=== PATIENT | male | born 1980 | race Hispanic/Latino ===

== ENCOUNTER 2017-07-13 13:27 | Emergency (ER) | payer SELFPAY ==
[2017-07-13 15:08] LABS: Urine Bacteria <20 /HPF (NONE SEEN); Urine Culture Reflex Order REFLEXED; Urine Mucus 2+ /HPF (NONE SEEN)
[2017-07-13 15:09] LABS: Urine Blood 3+ (NEG); Urine Glucose 2+ (NEG); Urine Protein 2+ (NEG); Urine Specific Gravity 1.025 (1.005-1.030); Urine pH 5.5 (5.0-7.0)
[2017-07-13] MEDS ORDERED: CEFTRIAXONE/SWI 1gm 1 GM/10 ML SYR ONE (15:31)
[2017-07-13] MEDS ORDERED: AZITHROMYCIN 250 MG TAB ONE (15:35)
--- NOTE | 2017-07-13 16:34 | EDPHYS ---
Physician Documentation [facility] Name: Boo Nieto Age: 37 yrs Sex: Male : 1980 Arrival Date: 07/13/2017 Time: 13:30 Bed 23 Private MD: ED Physician Glenn Noel HPI: 07/13 15:00 This 37 yrs old Male presents to ER via Ambulatory with complaints of Genital cp Problem. 15:00 The patient presents with urinary symptoms, pain, difficulty urinating. cp 15:00 Onset: The symptoms/episode began/occurred 4 day(s) ago. cp 15:00 Associated signs and symptoms: Pertinent positives: penile swelling, Pertinent cp negatives: abdominal pain, fever. Severity of symptoms: in the emergency department the symptoms are unchanged, despite home interventions. Historical: - Allergies: 13:37 No Known Allergies; aj - Home Meds: 13:37 None [Active]; aj - PMHx: 13:37 None; aj - PSHx: 13:37 None; aj - Immunization history:: Adult Immunizations up to date. - Social history:: Smoking status: Patient/guardian denies using tobacco. ROS: 15:05 Constitutional: Negative for body aches, chills, fever, poor PO intake. cp 15:05 Eyes: Negative for injury, pain, redness, and discharge. cp 15:05 ENT: Negative for drainage from ear(s), ear pain, sore throat, difficulty swallowing, difficulty handling secretions. 15:05 Cardiovascular: Negative for chest pain, edema, palpitations. 15:05 Respiratory: Negative for cough, shortness of breath, wheezing. 15:05 Abdomen/GI: Negative for abdominal pain, nausea, vomiting, and diarrhea, black/tarry stool, rectal bleeding. 15:05 : Positive for difficulty urinating, penile pain. 15:05 All other systems are negative. Exam: 15:12 Constitutional: The patient appears in no acute distress, alert, awake, non-toxic, well cp developed, well nourished, uncomfortable. 15:12 Head/Face: Normocephalic, atraumatic. cp 15:12 Eyes: Periorbital structures: appear normal, Conjunctiva: normal, no exudate, no cp injection, Lids and lashes: appear normal, bilaterally. 15:12 ENT: External ear(s): are unremarkable, Nose: is normal, Mouth: is normal. 15:12 Chest/axilla: Inspection: normal, Palpation: is normal, no crepitus, no tenderness. 15:12 Cardiovascular: Rate: normal, Rhythm: regular. 15:12 Respiratory: the patient does not display signs of respiratory distress, Respirations: normal, no use of accessory muscles, no retractions, no splinting, no tachypnea, labored breathing, is not present, Breath sounds: are clear throughout, no decreased breath sounds, no stridor, no wheezing. 15:12 Abdomen/GI: Inspection: abdomen appears normal, Bowel sounds: active, all quadrants, Palpation: abdomen is soft and non-tender, in all quadrants, voluntary guarding, is not appreciated, involuntary guarding, is not appreciated. 15:12 : Male external genitalia: Patient is not circumisioned. erythema, of the head of penis is seen, swelling: of the head of penis is noted, foreskin swollen and unable to fully retract, Sexual behavior: the patient is sexually active, and reports a single partner. Vital Signs: 13:37 BP 112 / 76; Pulse 76; Resp 20; Temp 97.6; Pulse Ox 98% on R/A; Weight 81.65 kg; Height aj 5 ft. 6 in. (167.64 cm); Pain 10/10; 14:30 BP 124 / 93; Pulse 71; Resp 18; Pulse Ox 99% on R/A; Pain 9/10; em 16:44 BP 127 / 86; Pulse 84; Resp 14; Pulse Ox 97% on R/A; Pain 7/10; em 13:37 Body Mass Index 29.05 (81.65 kg, 167.64 cm) aj MDM: 14:07 Patient medically screened. cp 15:00 Differential diagnosis: UTI, Wood catheter problem, prostatitis, urethritis, phimosis. cp 16:32 Data reviewed: vital signs, nurses notes, lab test result(s), and as a result, I will cp discharge patient. 16:32 Counseling: I had a detailed discussion with the patient and/or guardian regarding: the cp historical points, exam findings, and any diagnostic results supporting the discharge/admit diagnosis, lab results, the need for outpatient follow up, a urologist. 16:32 ED course: VSS. Patient able to void and empty bladder. Will discharge to home for cp continued monitoring. 07/13 14:31 Order name: Urine Microscopic Only; Complete Time: 15:09 07/13 15:09 Interpretation: UWBC >50; URBC 5-10; SQEPI 5-10; Reviewed. 07/13 14:44 Order name: Urine Dipstick--Ancillary (enter results); Complete Time: 15:15 mw2 07/13 15:15 Interpretation: UKET 1+; UBLD 3+; UPROT 2+; Reviewed. 07/13 15:10 Order name: Urine Culture [facility] 07/13 14:31 Order name: Urine Dipstick-Ancillary (obtain specimen); Complete Time: 14:50 07/13 14:31 Order name: Bladder Scanner: pre and post void; Complete Time: 15:03 07/13 15:16 Order name: IV; Complete Time: 16:18 cp Administered Medications: 15:15 Not Given (Physician Discretion): Rocephin (cefTRIAXone) 1 grams IM once cp 16:18 Drug: Zithromax 1 grams Route: PO; em 17:04 Follow up: Response: No adverse reaction em 16:20 Drug: Rocephin - (cefTRIAXone) 1 grams Route: IVPB; Infused Over: 30 mins; Site: right ss antecubital; 17:03 Follow up: Response: No adverse reaction; IV Status: Completed infusion em Disposition: 07/13/17 16:33 Discharged to Home. Impression: Phimosis. - Condition is Stable. - Discharge Instructions: Phimosis. - Prescriptions for Clotrimazole 1 % Topical Cream - Apply to affected area 1 application by TOPICAL route 3 times per day apply to head of penis as directed; 30 gram. Keflex 500 mg Oral Capsule - take 1 capsule by ORAL route every 6 hours for 10 days; 40 capsule. - Medication Reconciliation Form, Thank You Letter, Antibiotic Education, Prescription Opioid Use form. - Follow up: Brandy Balderrama MD; When: 2 - 3 days; Reason: Recheck today's complaints. - Problem is new. - Symptoms have improved. Addendum: 07/17/2017 12:47 Co-signature as Attending Physician, Glenn Noel MD. g s Signatures: Dispatcher [employer] Priyanka Tavares RN RN Schuyler Mcmanus, BREWING TECHNICIAN BREWING TECHNICIAN Leigha Au RN RN ss Page, Corey, PA PA cp Starr, Gregory, MD MD gs Corrections: (The following items were deleted from the chart) 07/13 16:22 15:16 CBC+H.LAB.BRZ ordered. EDMS EDMS 16: 15:16 BASIC METABOLIC PANEL+C.LAB.BRZ ordered. EDMS EDMS 16: 15:16 HEPATIC FUNCTION+C.LAB.BRZ ordered. EDMS EDMS
--- NOTE | 2017-07-13 16:34 | ER ---
Nurse's Notes [facility] Name: Boo Nieto Age: 37 yrs Sex: Male : 1980 Arrival Date: 07/13/2017 Time: 13:30 Bed 23 Private MD: Diagnosis: Phimosis Presentation: 07/13 13:36 Presenting complaint: Patient states: Penile pain and swelling for 4 days with burning aj with urination. Transition of care: patient was not received from another setting of care. Onset of symptoms was July 09, 2017. Initial Sepsis Screen: Does the patient meet any 2 criteria? No. Patient's initial sepsis screen is negative. Does the patient have a suspected source of infection? No. Patient's initial sepsis screen is negative. Care prior to arrival: None. 13:36 Method Of Arrival: Ambulatory aj 13:36 Acuity: GAUTAM 4 aj Triage Assessment: 13:37 General: Appears in no apparent distress. comfortable, Behavior is calm, cooperative, aj appropriate for age. Pain: Complains of pain in pelvis Pain currently is 10 out of 10 on a pain scale. Neuro: Level of Consciousness is awake, alert, obeys commands, Oriented to person, place, time, situation, Appropriate for age. Respiratory: Airway is patent Respiratory effort is even, unlabored, Respiratory pattern is regular, symmetrical. : white, Reports pain with urination. Derm: Skin is intact, is healthy with good turgor, Skin is pink, warm \T\ dry. normal. Historical: - Allergies: 13:37 No Known Allergies; aj - Home Meds: 13:37 None [Active]; aj - PMHx: 13:37 None; aj - PSHx: 13:37 None; aj - Immunization history:: Adult Immunizations up to date. - Social history:: Smoking status: Patient/guardian denies using tobacco. Screenin:30 Abuse screen: Denies threats or abuse. Nutritional screening: No deficits noted. em Tuberculosis screening: No symptoms or risk factors identified. Fall Risk None identified. Assessment: 14:15 General: Appears in no apparent distress. uncomfortable, Behavior is calm, cooperative. em General: Denies fever. Pain: Complains of pain in pelvis Pain currently is 10 out of 10 on a pain scale. Pain began 4 days ago. Neuro: Level of Consciousness is awake, alert, obeys commands, Oriented to person, place, time, situation. Cardiovascular: Capillary refill < 3 seconds Patient's skin is warm and dry. Respiratory: Airway is patent Respiratory effort is even, unlabored, Respiratory pattern is regular, symmetrical. GI: Abdomen is flat, Patient currently denies diarrhea, nausea, vomiting. : Penile discharge is Swelling noted on penis. Derm: Skin is intact, Skin is pink, warm \T\ dry. Musculoskeletal: Range of motion: intact in all extremities. 14:30 General: The previous assessment is accurate, call light remains within reach. . ss 15:00 Reassessment: Patient appears in no apparent distress at this time. Patient and/or em family updated on plan of care and expected duration. Pain level reassessed. Patient is alert, oriented x 3, equal unlabored respirations, skin warm/dry/pink. 15:45 Reassessment: pt voided x 2 times, reports burning with urination. em 16:00 Reassessment: Patient appears in no apparent distress at this time. Patient and/or em family updated on plan of care and expected duration. Pain level reassessed. Patient is alert, oriented x 3, equal unlabored respirations, skin warm/dry/pink. post void 122 mL, pt reports burning when urinating. 16:20 Reassessment: Patient appears in no apparent distress at this time. labs were canceled em due to pt being able to void, BENITO Linn notified. 16:44 Reassessment: Patient appears in no apparent distress at this time. Patient and/or em family updated on plan of care and expected duration. Pain level reassessed. Patient is alert, oriented x 3, equal unlabored respirations, skin warm/dry/pink. Patient states feeling better. Patient states symptoms have improved. Vital Signs: 13:37 BP 112 / 76; Pulse 76; Resp 20; Temp 97.6; Pulse Ox 98% on R/A; Weight 81.65 kg; Height aj 5 ft. 6 in. (167.64 cm); Pain 10/10; 14:30 BP 124 / 93; Pulse 71; Resp 18; Pulse Ox 99% on R/A; Pain 9/10; em 16:44 BP 127 / 86; Pulse 84; Resp 14; Pulse Ox 97% on R/A; Pain 7/10; em 13:37 Body Mass Index 29.05 (81.65 kg, 167.64 cm) ED Course: 13:30 Patient arrived in ED. as 13:37 Triage completed. aj 13:37 Arm band placed on right wrist. Patient placed in an exam room. aj 14:07 Kaveh Diane PA is PHCP. cp 14:07 Glenn Noel MD is Attending Physician. cp 14:37 Schuyler Romo LVN is Primary Nurse. em 16:00 Bladder scan completed. post void 122 mL. em 16:17 Patient has correct armband on for positive identification. Bed in low position. Call em light in reach. Side rails up X2. Adult w/ patient. 16:17 No provider procedures requiring assistance completed. Initial lab(s) drawn, by me, em sent to lab. Inserted saline lock: 20 gauge in right antecubital area, using aseptic technique. Blood collected. 16:33 Brandy Balderrama MD is Referral Physician. cp 17:08 IV discontinued, intact, bleeding controlled, No redness/swelling at site. Pressure em dressing applied. Administered Medications: 15:15 Not Given (Physician Discretion): Rocephin (cefTRIAXone) 1 grams IM once cp 16:18 Drug: Zithromax 1 grams Route: PO; em 17:04 Follow up: Response: No adverse reaction em 16:20 Drug: Rocephin - (cefTRIAXone) 1 grams Route: IVPB; Infused Over: 30 mins; Site: right ss antecubital; 17:03 Follow up: Response: No adverse reaction; IV Status: Completed infusion em Outcome: 16:33 Discharge ordered by MD. cp 17:07 Discharged to home ambulatory. em 17:07 Condition: good 17:07 Discharge instructions given to patient, Instructed on discharge instructions, follow up and referral plans. medication usage, Demonstrated understanding of instructions, follow-up care, medications, Prescriptions given X 2. 17:09 Patient left the ED. Signatures: Priyanka Mckeon RN RN Schuyler Romo LVN LVN em Vianney Green Shelby, RN RN Kaveh Diane PA PA cp
== END 2017-07-13 17:09 | disposition home or self-care (01) ==
LOC: ER 13:27
DX: N47.1 Phimosis (principal)
CPT/HCPCS: 81003; 81015; 87086; 87088; 96365; 99284; J0696

== ENCOUNTER 2018-02-06 06:50 | Emergency (ER) | payer SELFPAY ==
[2018-02-06 07:36] LABS: Urine Blood NEGATIVE (NEG); Urine Glucose 1+ (NEG); Urine Protein NEGATIVE (NEG); Urine pH 5.5 (5.0-7.0)
[2018-02-06 07:43] LABS: Urine Bacteria >50 /HPF (NONE SEEN); Urine Culture Reflex Order NOT NEEDED; Urine Mucus 1+ /HPF (NONE SEEN); Urine RBC NONE SEEN /HPF (NONE SEEN)
[2018-02-06] MEDS ORDERED: NA CHLORIDE 0.9% 1,000 ML ONE (07:49)
[2018-02-06 07:54] LABS: Absolute Lymphocytes (CBC) 2.2 K/uL (0.7-4.9); Absolute Monocytes 0.5 K/uL (0.1-1.3); Absolute Neutrophil 5.8 K/uL (1.8-8.0); Basophils % 1.1 % (0-1.3); Eosinophils % 3.9 % (0-4.4); Hematocrit 48.2 % (39.6-49.0); Lymphocytes % 24.3 % (15.3-44.8); MCH 31.6 pg (27.0-35.0); MCV 90.6 fL (80-100); MPV 9.5 fL (7.6-11.3); Monocytes % 5.5 % (3.3-12.3); RBC Red Blood Cell Count 5.32 M/uL (4.33-5.43)
[2018-02-06 08:15] LABS: Bilirubin Direct 0.2 mg/dL (0-0.2); Bilirubin Total 0.5 mg/dL (0.2-1.0); Potassium 3.9 mmol/L (3.5-5.1); Protein, Total 8.3 g/dL (6.4-8.2)
--- NOTE | 2018-02-06 08:19 | RAD REPORT ---
EXAM DESCRIPTION: CT - Stone Protocol - 02/06/2018 7:29 am CLINICAL HISTORY: Flank pain. Abd pain;Flank pain COMPARISON: No comparisons TECHNIQUE: Axial images were obtained without oral or IV contrast. Lack of contrast limits solid org an and vascular assessment. The [id number] spans the entirety of the system partially obscuring uppermost abdomen and lung bases. Coronal reformatted images were obtained and reviewed. All CT scans are performed using dose optimization technique as appropriate and may include automated exposure control or mA/KV adjustment according to patient size. FINDINGS: The lower lung rodriguez are clear. Imaged portions of the liver and spleen show no suspicious findings on non-contrast imaging. The panc reas and adrenal glands are normal. No pathologic lymphadenopathy in the abdomen or pelvis. No urinary tract stones or obstructive uropathy. No bowel obstruction, free air, free fluid or abscess. Normal appendix noted. No significant bony abnormality. IMPRESSION: No urinary tract stones or obstructive uropathy.
--- NOTE | 2018-02-06 08:31 | ER ---
Nurse's Notes [facility] Name: Boo Nieto Age: 37 yrs Sex: Male : 1980 Arrival Date: 02/06/2018 Time: 06:51 Bed 19 Private MD: Diagnosis: Low back pain;Type 2 diabetes mellitus Presentation: 02/06 07:00 Presenting complaint: Patient states: Pain in bilateral flank since Monday. jl7 Transition of care: patient was not received from another setting of care. Onset of symptoms was February 03, 2018. Risk Assessment: Do you want to hurt yourself or someone else? Patient reports no desire to harm self or others. Initial Sepsis Screen: Does the patient meet any 2 criteria? No. Patient's initial sepsis screen is negative. Does the patient have a suspected source of infection? No. Patient's initial sepsis screen is negative. Care prior to arrival: None. 07:00 Method Of Arrival: Ambulatory jl7 07:00 Acuity: GAUTAM 3 jl7 Triage Assessment: 07:05 General: Appears in no apparent distress. uncomfortable, Behavior is calm, appropriate jl7 for age. Pain: Complains of pain in bilateral flank Pain currently is 8 out of 10 on a pain scale. Musculoskeletal: Range of motion: intact in all extremities. Historical: - Allergies: 07:05 No Known Allergies; jl7 - Home Meds: 07:05 None [Active]; jl7 - PMHx: 07:05 None; jl7 - PSHx: 07:05 None; jl7 - Immunization history:: Adult Immunizations unknown. - Social history:: Smoking status: Patient uses tobacco products, denies chronic smoking, but will smoke occasionally. - Ebola Screening: : No symptoms or risks identified at this time. Screenin:10 Abuse screen: Denies threats or abuse. Denies injuries from another. Nutritional hj screening: No deficits noted. Tuberculosis screening: No symptoms or risk factors identified. Fall Risk None identified. Assessment: 07:13 Reassessment: with Adriana, [place] number [id number] language line;. General: Appears in no hj apparent distress. uncomfortable, Behavior is calm, cooperative, appropriate for age. Pain: Complains of pain in flank. Neuro: Level of Consciousness is awake, alert, obeys commands, Oriented to person, place, time, situation, Appropriate for age. Cardiovascular: Capillary refill < 3 seconds Patient's skin is warm and dry. Respiratory: Airway is patent Respiratory effort is even, unlabored, Respiratory pattern is regular, symmetrical. GI: Reports lower abdominal pain. : No signs and/or symptoms were reported regarding the genitourinary system. EENT: No signs and/or symptoms were reported regarding the EENT system. Derm: No signs and/or symptoms reported regarding the dermatologic system. Musculoskeletal: No signs and/or symptoms reported regarding the musculoskeletal system. Vital Signs: 07:05 BP 128 / 90; Pulse 72; Resp 18 S; Temp 97.9(O); Pulse Ox 99% on R/A; Weight 81.65 kg jl7 (R); Height 5 ft. 3 in. (160.02 cm) (R); Pain 8/10; 08:42 BP 127 / 89; Pulse 70; Resp 18; Pulse Ox 100% on R/A; hj 07:05 Body Mass Index 31.89 (81.65 kg, 160.02 cm) jl7 ED Course: 06:51 Patient arrived in ED. am2 07:02 Avtar Prado PA is PHCP. jr8 07:02 Kaveh Zhou MD is Attending Physician. jr8 07:05 Triage completed. jl7 07:05 Arm band placed on right wrist. jl7 07:09 Lake Fuentes, RN is Primary Nurse. jd3 07:13 Patient has correct armband on for positive identification. Placed in gown. Bed in low hj position. Call light in reach. Side rails up X 1. Adult w/ patient. 07:17 Bryson Guzmán, CONCEPCIÓN is Primary Nurse. hj 07:19 Patient moved to [place] via wheelchair. kw1 07:22 Urine collected: clean catch specimen, nasim colored. dh3 07:27 CT completed. Patient tolerated procedure well. Patient moved back from [place]. vm2 07:42 Initial lab(s) drawn, by me, sent to lab. Inserted saline lock: 20 gauge in right jb1 antecubital area, using aseptic technique. Blood collected. 08:44 No provider procedures requiring assistance completed. IV discontinued, intact, hj bleeding controlled, No redness/swelling at site. Pressure dressing applied. Administered Medications: 07:41 Drug: NS 0.9% 1000 ml Route: IV; Rate: 1000 ml; Site: right antecubital; 08:43 Follow up: IV Status: Completed infusion; IV Intake: 1000ml Point of Care Testing: Blood Glucose: 07:36 Blood Glucose: 254 mg/dL; hj 08:42 Blood Glucose: 252 mg/dL; hj Ranges: Intake: 08:43 IV: 1000ml; Total: 1000ml. Outcome: 08:30 Discharge ordered by MD. dawn 08:44 Discharged to home ambulatory, with family. 08:44 Condition: stable 08:44 Discharge instructions given to patient, family, Instructed on discharge instructions, follow up and referral plans. medication usage, Demonstrated understanding of instructions, follow-up care, medications, Prescriptions given X 3. 08:48 Patient left the ED. Signatures: Kunal Patrick jb1 Avtar Prado PA PA jr8 Bryson Guzmán RN RN Parish Wakefeild RN RN jl7 Priyanka Cruz Victoria 2 lEsy Leon 3 Lake Fuentes RN RN jd3 Ivon Lennon kw1
--- NOTE | 2018-02-06 08:31 | EDPHYS ---
Physician Documentation [facility] Name: Boo Nieto Age: 37 yrs Sex: Male : 1980 Arrival Date: 02/06/2018 Time: 06:51 Bed 19 Private MD: ED Physician Kaveh Zhou HPI: 02/06 07:16 This 37 yrs old Male presents to ER via Ambulatory with complaints of Flank jr8 Pain, Back Pain. 07:16 The patient complains of pain in the left flank. The pain radiates. Onset: The jr8 symptoms/episode began/occurred acutely, 3 day(s) ago. Modifying factors: The symptoms are alleviated by nothing. the symptoms are aggravated by movement. Associated signs and symptoms: The patient has no apparent associated signs or symptoms. Severity of pain: At its worst the pain was mild in the emergency department the pain is unchanged. The patient has not experienced similar symptoms in the past. The patient has not recently seen a physician. Historical: - Allergies: 07:05 No Known Allergies; jl7 - Home Meds: 07:05 None [Active]; jl7 - PMHx: 07:05 None; jl7 - PSHx: 07:05 None; jl7 - Immunization history:: Adult Immunizations unknown. - Social history:: Smoking status: Patient uses tobacco products, denies chronic smoking, but will smoke occasionally. - Ebola Screening: : No symptoms or risks identified at this time. ROS: 07:16 Eyes: Negative for injury, pain, redness, and discharge, ENT: Negative for injury, jr8 pain, and discharge, Neck: Negative for injury, pain, and swelling, Cardiovascular: Negative for chest pain, palpitations, and edema, Respiratory: Negative for shortness of breath, cough, wheezing, and pleuritic chest pain, MS/Extremity: Negative for injury and deformity, Skin: Negative for injury, rash, and discoloration, Neuro: Negative for headache, weakness, numbness, tingling, and seizure. 07:16 Abdomen/GI: Positive for abdominal pain, Negative for nausea, vomiting, and diarrhea, constipation, abdominal cramps, abdominal distension, anorexia, dysphagia, hematemesis, black/tarry stool, rectal pain, rectal bleeding, bowel incontinence, flatulence. 07:16 Back: Positive for pain at rest, pain with movement, flank pain, of the left flank. Exam: 07:18 Eyes: Pupils equal round and reactive to light, extra-ocular motions intact. Lids and jr8 lashes normal. Conjunctiva and sclera are non-icteric and not injected. Cornea within normal limits. Periorbital areas with no swelling, redness, or edema. ENT: Nares patent. No nasal discharge, no septal abnormalities noted. Tympanic membranes are normal and external auditory canals are clear. Oropharynx with no redness, swelling, or masses, exudates, or evidence of obstruction, uvula midline. Mucous membranes moist. Neck: Trachea midline, no thyromegaly or masses palpated, and no cervical lymphadenopathy. Supple, full range of motion without nuchal rigidity, or vertebral point tenderness. No Meningismus. Cardiovascular: Regular rate and rhythm with a normal S1 and S2. No gallops, murmurs, or rubs. Normal PMI, no JVD. No pulse deficits. Respiratory: Lungs have equal breath sounds bilaterally, clear to auscultation and percussion. No rales, rhonchi or wheezes noted. No increased work of breathing, no retractions or nasal flaring. Skin: Warm, dry with normal turgor. Normal color with no rashes, no lesions, and no evidence of cellulitis. MS/ Extremity: Pulses equal, no cyanosis. Neurovascular intact. Full, normal range of motion. Neuro: Awake and alert, GCS 15, oriented to person, place, time, and situation. Cranial nerves II-XII grossly intact. Motor strength 5/5 in all extremities. Sensory grossly intact. Cerebellar exam normal. Normal gait. 07:18 Abdomen/GI: Inspection: abdomen appears normal, Bowel sounds: active, all quadrants, Palpation: soft, in all quadrants, mild abdominal tenderness, in the anterior aspect of left lateral abdomen and left lower quadrant, mass, is not appreciated, rebound tenderness, is not appreciated, voluntary guarding, is not appreciated, involuntary guarding, is not appreciated, no appreciated organomegaly, Indicators: McBurney's point is not tender, De La Rosa's sign is negative, Rovsing's sign is negative, Liver: tenderness, is not appreciated. 07:18 Back: pain, that is mild, of the left flank, ROM is painful, normal spinal alignment noted, CVA tenderness, is absent. Vital Signs: 07:05 BP 128 / 90; Pulse 72; Resp 18 S; Temp 97.9(O); Pulse Ox 99% on R/A; Weight 81.65 kg jl7 (R); Height 5 ft. 3 in. (160.02 cm) (R); Pain 8/10; 08:42 BP 127 / 89; Pulse 70; Resp 18; Pulse Ox 100% on R/A; hj 07:05 Body Mass Index 31.89 (81.65 kg, 160.02 cm) 7 MDM: 07:02 Patient medically screened. [facility] 08:28 Data reviewed: vital signs, nurses notes, lab test result(s), radiologic studies, CT [facility] scan, and as a result, I will discharge patient. Data interpreted: Pulse oximetry: on room air is 99 %. Interpretation: normal. Counseling: I had a detailed discussion with the patient and/or guardian regarding: the historical points, exam findings, and any diagnostic results supporting the discharge/admit diagnosis, lab results, radiology results, the need for outpatient follow up, a family practitioner, to return to the emergency department if symptoms worsen or persist or if there are any questions or concerns that arise at home. ED course: Detailed discussion with patient about glucose and need for continued f/u for new onset diabetes. Patient will f/u with [facility] and start checking his glucose twice a day . 02/06 07:16 Order name: Basic Metabolic Panel [facility] 02/06 07:16 Order name: CBC with Diff [facility] 02/06 07:16 Order name: Creatinine for Radiology [facility] 02/06 07:16 Order name: Hepatic Function [facility] 02/06 07:16 Order name: Lipase [facility] 02/06 07:18 Order name: Urine Microscopic Only [facility] 02/06 07:22 Order name: Urine Dipstick--Ancillary (enter results) 02/06 07:36 Order name: Urine Dipstick-Ancillary; Complete Time: 07:41 EDNJ 02/06 07:43 Order name: Urine Microscopic Only; Complete Time: 07:46 EDNJ 02/06 07:55 Order name: CBC with Automated Diff; Complete Time: 08:03 EDNJ 02/06 08:11 Order name: Creatinine (Radiology Only); Complete Time: 08:14 EDNJ 02/06 08:15 Order name: Basic Metabolic Panel; Complete Time: 08:18 EDNJ 02/06 08:16 Order name: Liver (Hepatic) Function; Complete Time: 08:18 EDNJ 02/06 08:16 Order name: Lipase; Complete Time: 08:18 [facility] 02/06 07:16 Order name: IV Saline Lock; Complete Time: 07:41 [facility] 02/06 07:16 Order name: Labs collected and sent; Complete Time: 07:41 [facility] 02/06 07:16 Order name: CT Stone Protocol [facility] 02/06 07:16 Order name: Urine Dipstick-Ancillary (obtain specimen); Complete Time: 07:22 [facility] 02/06 07:18 Order name: Glucose Level; Complete Time: 07:41 [facility] 02/06 08:19 Order name: CT; Complete Time: 08:20 EDMS Administered Medications: 07:41 Drug: NS 0.9% 1000 ml Route: IV; Rate: 1000 ml; Site: right antecubital; hj 08:43 Follow up: IV Status: Completed infusion; IV Intake: 1000ml Point of Care Testing: Blood Glucose: 07:36 Blood Glucose: 254 mg/dL; hj 08:42 Blood Glucose: 252 mg/dL; hj Ranges: Critical Glucose Levels:Adult <50 mg/dl or >400 mg/dl <40 mg/dl or >180 mg/dl Disposition: 15:27 Co-signature as Attending Physician, Kaveh Zhou MD I agree with the assessment and salvador plan of care. Disposition: 02/06/18 08:30 Discharged to Home. Impression: Low back pain, Type 2 diabetes mellitus. - Condition is Stable. - Discharge Instructions: Back Pain, Adult, Musculoskeletal Pain, Diabetes and Exercise, Diabetes Mellitus and Food, Heat Therapy, Screening for Type 2 Diabetes. - Prescriptions for Ibuprofen 800 mg Oral Tablet - take 1 tablet by ORAL route every 12 hours As needed take with food; 20 tablet. Metformin 500 mg Oral Tablet - take 1 tablet by ORAL route 2 times per day . Then take 1 tablet with morning meals AND evening meals; 60 tablet. orphenadrine citrate 100 mg Oral Tablet Sustained Release - take 1 tablet by ORAL route 2 times per day As needed; 20 tablet. - Medication Reconciliation Form, Thank You Letter, Antibiotic Education, Prescription Opioid Use form. - Follow up: Private Physician; When: 1 week; Reason: Recheck today's complaints, Continuance of care, Re-evaluation by your physician. - Problem is new. - Symptoms have improved. Signatures: Dispatcher [employer] EDKaveh Panchal MD MD cha Roszak, Josh, PA PA jr8 Bryson Guzmán RN RN Parish Flannery RN RN jl7 Corrections: (The following items were deleted from the chart) 08:48 08:30 02/06/2018 08:30 Discharged to Home. Impression: Low back pain; Type 2 diabetes hj mellitus. Condition is Stable. Forms are Medication Reconciliation Form, Thank You Letter, Antibiotic Education, Prescription Opioid Use. Follow up: Private Physician; When: 1 week; Reason: Recheck today's complaints, Continuance of care, Re-evaluation by your physician. Problem is new. Symptoms have improved. jr8
== END 2018-02-06 08:48 | disposition home or self-care (01) ==
LOC: ER 06:50
DX: E11.9 Type 2 diabetes mellitus without complications (principal); Z72.0 Tobacco use
CPT/HCPCS: 36415; 74176; 76377; 80048; 80076; 81003; 81015; 82962; 83690; 85025; 96360; 99284; J7030

== ENCOUNTER 2018-04-23 04:05 | Emergency (ER) | payer SELFPAY ==
[2018-04-23 04:51] LABS: Absolute Lymphocytes (CBC) 2.2 K/uL (0.7-4.9); Absolute Monocytes 0.4 K/uL (0.1-1.3); Absolute Neutrophil 4.9 K/uL (1.8-8.0); Eosinophils % 2.1 % (0-4.4); Hematocrit 45.9 % (39.6-49.0); Lymphocytes % 28.1 % (15.3-44.8); MPV 9.3 fL (7.6-11.3); Monocytes % 5.7 % (3.3-12.3); RBC Red Blood Cell Count 5.07 M/uL (4.33-5.43)
[2018-04-23 05:15] LABS: BUN Blood Urea Nitrogen 8 mg/dL (7-18); Bicarbonate 28 mmol/L (21-32); Glucose Level 264 mg/dL (74-106); Sodium Level 138 mmol/L (136-145); Troponin (Emerg Dept Use Only) < 0.02 ng/mL (0.0-0.045)
--- NOTE | 2018-04-23 05:33 | ER ---
Nurse's Notes [facility] Name: Boo Nieto Age: 37 yrs Sex: Male : 1980 Arrival Date: 04/23/2018 Time: 04:08 Bed 5 Private MD: Diagnosis: Dizziness and giddiness;Hyperglycemia, unspecified Presentation: 04/23 04:27 Presenting complaint: Patient states: Pt reports he had chest pressure and dizziness ea that started at about 8 PM and lasted 20 minutes. Reports the dizziness returned about 30 min to 1 hour ago. Pt reports he drank a couple of beers last night. Transition of care: patient was not received from another setting of care. Onset of symptoms was April 23, 2018. Risk Assessment: Do you want to hurt yourself or someone else? Patient reports no desire to harm self or others. Initial Sepsis Screen: Does the patient meet any 2 criteria? No. Patient's initial sepsis screen is negative. Does the patient have a suspected source of infection? No. Patient's initial sepsis screen is negative. Care prior to arrival: None. 04:27 Method Of Arrival: Ambulatory ea 04:27 Acuity: GAUTAM 3 ea Triage Assessment: 04:27 General: Appears in no apparent distress. Behavior is calm, cooperative, appropriate ea for age. Pain: Denies pain. EENT: No signs and/or symptoms were reported regarding the EENT system. Neuro: Reports dizziness. Cardiovascular: Patient's skin is warm and dry. Respiratory: Airway is patent Respiratory effort is even, unlabored, Respiratory pattern is regular, symmetrical, Breath sounds are clear bilaterally. GI: No signs and/or symptoms were reported involving the gastrointestinal system. : No signs and/or symptoms were reported regarding the genitourinary system. Derm: Skin is pink, warm \\T\\ dry. Musculoskeletal: Circulation, motion, and sensation intact. Historical: - Allergies: 04:38 No Known Allergies; ea - Home Meds: 04:38 None [Active]; ea - PMHx: 04:38 "pre diabetic"; ea - PSHx: 04:38 None; ea - Immunization history:: Adult Immunizations up to date. - Social history:: Smoking status: Patient uses tobacco products, denies chronic smoking, but will smoke occasionally, Patient uses alcohol, occasionally. - Ebola Screening: : No symptoms or risks identified at this time. Screenin:36 Abuse screen: Denies threats or abuse. Nutritional screening: No deficits noted. ea Tuberculosis screening: No symptoms or risk factors identified. Fall Risk None identified. Assessment: 04:27 Reassessment: see triage assessment. ea 05:45 Reassessment: Patient and/or family updated on plan of care and expected duration. Pain ea level reassessed. Patient is alert, oriented x 3, equal unlabored respirations, skin warm/dry/pink. Discharge instruction given to patient, verbalized the understanding of instruction. Vital Signs: 04:27 BP 128 / 95; Pulse 98; Resp 18; Temp 98; Pulse Ox 99% ; Weight 86.18 kg; Height 5 ft. 6 ea in. (167.64 cm); 05:37 BP 133 / 97; Pulse 75; Resp 18; Pulse Ox 98% on R/A; ea 04:27 Body Mass Index 30.67 (86.18 kg, 167.64 cm) ea ED Course: 04:08 Patient arrived in ED. am2 04:15 Glenn Noel MD is Attending Physician. 04:27 Celeste Klein, CONCEPCIÓN is Primary Nurse. ea 04:27 Arm band placed on right wrist. Patient placed in an exam room, on a stretcher, on ea pulse oximetry. 04:27 Patient has correct armband on for positive identification. Placed in gown. Bed in low ea position. Call light in reach. 04:30 monitor tech on. Pulse ox on. NIBP on. rr5 04:32 Triage completed. ea 04:40 Inserted saline lock: 20 gauge in right forearm, using aseptic technique. Blood rr5 collected. 04:47 X-ray completed. Portable x-ray completed in exam room. Patient tolerated procedure kw well. 04:48 XRAY Chest (1 view) In Process Unspecified. EDMS 05:46 No provider procedures requiring assistance completed. IV discontinued, intact, ea bleeding controlled, No redness/swelling at site. Pressure dressing applied. Administered Medications: No medications were administered Outcome: 05:32 Discharge ordered by . 05:46 Discharged to home ambulatory. ea 05:46 Condition: stable 05:46 Discharge instructions given to patient, Instructed on discharge instructions, follow up and referral plans. medication usage, Demonstrated understanding of instructions, follow-up care, medications. 05:46 Patient left the ED. ea Signatures: Dispatcher [employer] Tawana Vidales Amanda am2 Celeste Klein RN Glenn Coleman ea, MD MD gs Roque, Raymond, RN RN rr5
--- NOTE | 2018-04-23 05:33 | EDPHYS ---
Physician Documentation [facility] Name: Boo Nieto Age: 37 yrs Sex: Male : 1980 Arrival Date: 04/23/2018 Time: 04:08 Bed 5 Private MD: ED Physician Glenn Noel HPI: 04/23 05:24 This 37 yrs old Male presents to ER via Ambulatory with complaints of gs Dizziness. 05:24 The patient presents with sense of spinning. Onset: The symptoms/episode began/occurred gs last night. Modifying factors: the symptoms are aggravated by movement of head. Associated signs and symptoms: Pertinent positives: chest pain, Pertinent negatives: abdominal pain, confusion, diaphoresis, headache, numbness, palpitations, shortness of breath. Severity of symptoms: At their worst the symptoms were moderate in the emergency department the symptoms have resolved. The patient has experienced similar episodes in the past, a few times, when blood sugar was elevated. Historical: - Allergies: 04:38 No Known Allergies; ea - Home Meds: 04:38 None [Active]; ea - PMHx: 04:38 "pre diabetic"; ea - PSHx: 04:38 None; ea - Immunization history:: Adult Immunizations up to date. - Social history:: Smoking status: Patient uses tobacco products, denies chronic smoking, but will smoke occasionally, Patient uses alcohol, occasionally. - Ebola Screening: : No symptoms or risks identified at this time. ROS: 05:24 All other systems are negative. gs Exam: 05:24 Head/Face: Normocephalic, atraumatic. Eyes: Pupils equal round and reactive to light, gs extra-ocular motions intact. Lids and lashes normal. Conjunctiva and sclera are non-icteric and not injected. Cornea within normal limits. Periorbital areas with no swelling, redness, or edema. ENT: Nares patent. No nasal discharge, no septal abnormalities noted. Tympanic membranes are normal and external auditory canals are clear. Oropharynx with no redness, swelling, or masses, exudates, or evidence of obstruction, uvula midline. Mucous membranes moist. Neck: Trachea midline, no thyromegaly or masses palpated, and no cervical lymphadenopathy. Supple, full range of motion without nuchal rigidity, or vertebral point tenderness. No Meningismus. Chest/axilla: Normal chest wall appearance and motion. Nontender with no deformity. No lesions are appreciated. Cardiovascular: Regular rate and rhythm with a normal S1 and S2. No gallops, murmurs, or rubs. Normal PMI, no JVD. No pulse deficits. Respiratory: Lungs have equal breath sounds bilaterally, clear to auscultation and percussion. No rales, rhonchi or wheezes noted. No increased work of breathing, no retractions or nasal flaring. Abdomen/GI: Soft, non-tender, with normal bowel sounds. No distension or tympany. No guarding or rebound. No evidence of tenderness throughout. Back: No spinal tenderness. No costovertebral tenderness. Full range of motion. Skin: Warm, dry with normal turgor. Normal color with no rashes, no lesions, and no evidence of cellulitis. MS/ Extremity: Pulses equal, no cyanosis. Neurovascular intact. Full, normal range of motion. Neuro: Awake and alert, GCS 15, oriented to person, place, time, and situation. Cranial nerves II-XII grossly intact. Motor strength 5/5 in all extremities. Sensory grossly intact. Cerebellar exam normal. Normal gait. 05:24 Constitutional: The patient appears alert, awake. 05:24 ECG was reviewed by the Attending Physician. Vital Signs: 04:27 BP 128 / 95; Pulse 98; Resp 18; Temp 98; Pulse Ox 99% ; Weight 86.18 kg; Height 5 ft. 6 ea in. (167.64 cm); 05:37 BP 133 / 97; Pulse 75; Resp 18; Pulse Ox 98% on R/A; ea 04:27 Body Mass Index 30.67 (86.18 kg, 167.64 cm) ea MDM: 04:33 Patient medically screened. 05:24 Differential diagnosis: cardiac arrhythmia, near-syncope. Data reviewed: vital signs, nurses notes. Counseling: I had a detailed discussion with the patient and/or guardian regarding: the historical points, exam findings, and any diagnostic results supporting the discharge/admit diagnosis, the need for outpatient follow up. Response to treatment: the patient's symptoms have resolved after treatment, and as a result, I will discharge patient. 04/23 04:33 Order name: Basic Metabolic Panel; Complete Time: 05:20 04/23 04:33 Order name: CBC with Diff; Complete Time: 05:20 04/23 04:33 Order name: Troponin (emerg Dept Use Only); Complete Time: 05:20 04/23 04:33 Order name: XRAY Chest (1 view) 04/23 04:33 Order name: EKG; Complete Time: 04:34 04/23 04:33 Order name: Cardiac monitoring; Complete Time: 04:49 04/23 04:33 Order name: EKG - Nurse/Tech; Complete Time: 04:49 04/23 04:33 Order name: IV Saline Lock; Complete Time: 04:49 04/23 04:33 Order name: Labs collected and sent; Complete Time: 04:49 04/23 04:33 Order name: O2 Per Protocol; Complete Time: 04:39 04/23 04:33 Order name: O2 Sat Monitoring; Complete Time: 04:39 gs EC:24 Rate is 78 beats/min. Rhythm is regular. NV interval is normal. QRS interval is gs prolonged. T waves are Inverted. No ST changes noted. Clinical impression: NSR w/ Non-specific ST/T Changes. Interpreted by me. Administered Medications: No medications were administered Disposition: 04/23/18 05:32 Discharged to Home. Impression: Dizziness and giddiness, Hyperglycemia, unspecified. - Condition is Stable. - Discharge Instructions: Dizziness, Hyperglycemia. - Work release form, Medication Reconciliation Form, Thank You Letter, Antibiotic Education, Prescription Opioid Use form. - Follow up: Private Physician; When: 2 - 3 days; Reason: Re-evaluation by your physician. Signatures: Dispatcher [employer] Celeste Ewing RN RN ea Starr, Gregory, MD MD Corrections: (The following items were deleted from the chart) 05:46 05:32 04/23/2018 05:32 Discharged to Home. Impression: Dizziness and giddiness; ea Hyperglycemia, unspecified. Condition is Stable. Forms are Medication Reconciliation Form, Thank You Letter, Antibiotic Education, Prescription Opioid Use. Follow up: Private Physician; When: 2 - 3 days; Reason: Re-evaluation by your physician. gs
--- NOTE | 2018-04-23 07:24 | EKG ---
Test Date: 2018-04-23 Test Time: 04:45:03 Pantry Attendant: STORM MEASUREMENT RESULTS: Intervals: Rate: 78 MT: 148 QRSD: 112 QT: 374 QTc: 426 [place]: P: 37 MT: 148 QRS: -23 T: -6 INTERPRETIVE STATEMENTS: Normal sinus rhythm Incomplete right bundle branch block Borderline ECG No previous ECG available for comparison Electronically Signed On 04-23-18 07:19:27 MAINTAINER OPERATOR by Rob Aguilar
--- NOTE | 2018-04-23 08:22 | RAD REPORT ---
EXAM DESCRIPTION: RAD - Chest Single View - 04/23/2018 4:49 am CLINICAL HISTORY: CHEST PAIN Chest pain. COMPARISON: No comparisons FINDINGS: Portable technique limits examination quality. The lungs are grossly clear. The heart is normal in size. No displaced fractures. IMPRESSION: No acute intrathoracic process suspected.
== END 2018-04-23 05:46 | disposition home or self-care (01) ==
LOC: ER 04:05
DX: R73.9 Hyperglycemia, unspecified (principal); R42 Dizziness and giddiness; I45.19 Other right bundle-branch block; Z72.0 Tobacco use
CPT/HCPCS: 36415; 71045; 80048; 84484; 85025; 93005; 99284